=== PATIENT | female | born 1995 ===

== ENCOUNTER 2017-05-17 17:47 | Inpatient (IN) | payer OTHER ==
[2017-05-17 18:23] VITALS: BMI 38.5
[2017-05-17] MEDS ORDERED: Lactated Ringer's 1,000 ML IV SCH (18:30)
[2017-05-17 19:24] LABS: BASO % 0.3 % (0.0-2.0); EOS # 0.2 K/uL (0.0-0.7); EOS % 1.6 % (0.0-4.0); HEMOGLOBIN 12.4 g/dL (12.0-16.0); LYMPH # 1.9 K/uL (1.0-4.3); LYMPH % 13.5 % (20.0-40.0); MEAN CELL VOLUME 87.9 fl (81.0-99.0); MEAN CORPUSCULAR HEMOGLOBIN 29.8 pg (27.0-31.0); MEAN CORPUSCULAR HGB CONC 33.9 g/dL (33.0-37.0); MEAN PLATELET VOLUME 9.4 fl (7.2-11.7); MONO # 0.9 K/uL (0.0-0.8); MONO % 6.2 % (0.0-10.0); NEUT # 10.9 K/uL (1.8-7.0); NEUT % 78.4 % (50.0-75.0); NRBC % 0.1 % (0.0-0.0); RBC 4.15 Mil/uL (3.80-5.20); RED CELL DISTRIBUTION WIDTH 13.7 % (11.5-14.5); WHITE BLOOD COUNT 13.9 K/uL (4.8-10.8)
[2017-05-17] MEDS ORDERED: Bupivacaine HCl 0.25% PF (10 ml) Inj ONE ×2 (19:36→21:22)
[2017-05-17] MEDS ORDERED: Fentanyl/Bupivacaine HCl 250 ML EPI ONE (20:22)
[2017-05-17] MEDS: Lactated Ringer's 1,000 ML IV SCH (20:36)
[2017-05-17] MEDS ORDERED: Oxytocin 30 UNITS in Sodium Chloride 0.9% 500 ML IV ONE (20:38)
[2017-05-17] MEDS ORDERED: Lidocaine 1% Inj (20ml) ONE (20:49)
[2017-05-18 00:24] LABS: BARBITURATES, UR NEGATIVE (NEGATIVE); BENZODIAZEPINES, UR NEGATIVE (NEGATIVE); OPIATES, UR NEGATIVE (NEGATIVE); PHENCYCLIDINE, UR NEGATIVE (NEGATIVE)
[2017-05-18] MEDS ORDERED: Oxycodone/Acetaminophen 5/325 mg Tab PO PRN ×3 (01:00→06:56)
--- NOTE | 2017-05-18 01:00 | OBHP ---
Datetime: 05/17/2017 22:54 IP Adm Impression: Term, intrauterine ; Active labor IP Admit Plan: Admit to unit Admit Comment, IP Provider: Patient presents to labor and delivery complaining of painful uterine co ntractions of moderate intensity patient denies leakage of fluid and vaginal bleeding and reports goo d movement. Past medical history none Past surgical history none Obstetrical history previous spontaneous vaginal delivery Social history denies alcohol tobacco Review of systems patient denies headache chest pain shortness of breath palpitations nausea vomit ing diarrhea dysuria here cold intolerance E bruisibility musculoskeletal neurological complaints Vital signs stable afebrile Physical exam see notes Intrauterine at 39+ weeks Active labor, vertex presentation, estimated weight 7 pounds Anticipate normal spontaneous vaginal delivery External monitor Pelvic Type - PN: Adequate Extremities - PN: Normal Abdomen - PN: Normal Back - PN: Normal Breast - PN: Not Done Lungs - PN: Normal Heart - PN: Normal Thyroid - PN: Normal Neurologic - PN: Normal HEENT - PN: Normal General - PN: Normal FHR - Baseline A Provider: 145 Membranes, Provider: Intact Gestation - Est Wks by US: 39.0 Pool Provider: Negative EGA AdmitDate IP: 40.0 Vital Signs Provider: Reviewed IP Chief Complaint: Uterine contractions NICHD Decel Fetus A IP Provider: None Dilatation, Provider: 4 Effacement, Provider: 100 Station, Provider: 0 Genitourinary Exam: Normal DTRs - PN: Normal
--- NOTE | 2017-05-18 01:02 | OBDS ---
DELIVERY PERSONNEL Delivery Doctor: Sissy Ansari MD Mobile Patrol Officer[facility] Anesthesiologist: Logan Marie MD Resident: Dr. Ford, PGY1 MATERNAL INFORMATION Delivery Anesthesia: Epidural Medications in Delivery: Pitocin 30 units in 500 mls Estimated Blood Loss (ml): 100 Placenta Cultured: No Maternal Complications: None Provider Comments: Delivered live baby boy. 12:44 AM the baby was bulb suctioned on the perineum and transferred to the maternal chest. The cord was clamped and cut and 3 vessels noted a cord blood was obtained and sent to the lab. Placenta was delivered at 12:47 AM intact estimated blood loss was 100 mL. There were no vaginal lacerations. The mother tolerated the procedure well the patient was the w ell-baby nursery with Apgars of 9 and 9 LABOR SUMMARY EDC: 05/17/2017 00:00 No. Babies in Womb: 1 Attempted: No Labor Anesthesia: Epidural LABOR INFORMATION Reason for Induction: Not Applicable Oxytocin: N/A Group B Beta Strep: Negative Antibiotics # of Doses: N/A Antibiotics Time of Last Dose: N/A Steroids Given: None Reason Steroids Not Administered: Not Applicable MEMBRANES Membranes Rupture Method: Artificial Rupture of Membranes: 05/17/2017 19:16 Length of Rupture (hrs): 5.47 Amniotic Fluid Color: Clear Amniotic Fluid Amount: Moderate Amniotic Fluid Odor: Normal STAGES OF LABOR Stage 3 hrs: 0 Stage 3 min: 3 BABY A INFORMATION Delivery Date/Time: 05/18/2017 00:44 Method of Delivery: Vaginal Born in Route : No : N/A Forceps: N/A Vacuum Extraction: N/A Shoulder Dystocia : No SHOULDER DYSTOCIA BABY A Delivery Date/Time: 05/18/2017 00:44 PRESENTATION/POSITION BABY A Presentation: Cephalic Cephalic Presentation: Vertex Breech Presentation: N/A PLACENTA INFORMATION BABY A Placenta Delivery Time : 05/18/2017 00:47 Placenta Method of Delivery: Spontaneous Placenta Status: Delivered SCORES BABY A Heart Rate 1 min: >100 bpm Resp Effort 1 min: Good Cry Reflex Irritability 1 min: Cough or Sneeze or Pulls Away Muscle Tone 1 min: Active Motion Color 1 min: Body [place], Extremities Blue Resuscitation Effort 1 min: N/A SCORE 1 MIN: 9 Heart Rate 5 min: >100 bpm Resp Effort 5 min: Good Cry Reflex Irritability 5 min: Cough or Sneeze or Pulls Away Muscle Tone 5 min: Active Motion Color 5 min: Body [place], Extremities Blue Resuscitation Effort 5 min: N/A SCORE 5 MIN: 9 INFANT INFORMATION BABY A Gestational Age at Delivery: 40.1 Gestational Status: Term Outcome : Liveborn Infant Condition : Stable Sex: Male IDENTIFICATION/MEDS BABY A ID Band Number: [id number] ID Band Location: Left Leg; Left Arm WEIGHT/LENGTH BABY A Infant Birthweight (gms): 3330 Infant Weight (lb): 7 Infant Weight (oz): 5 CORD INFORMATION BABY A No. Cord Vessels: 3 Nuchal Cord Other: N/A True Knot: N/A Infant Cord pH Baby Arterial: N/A Infant Cord pH Baby Venous: N/A Cord Blood Taken: Yes Suction: Mouth; Nose ASSESSMENT BABY A Infant Complications: Multiple Late Decels Physical Findings at Delivery: Within Normal Limits; Molding of the Head Respirations: Appears Normal Associate Professor Of Philosophy/ALS Called : No Transferred To: Remains with Mother
[2017-05-18 07:38] LABS: HEMOGLOBIN 10.6 g/dL (12.0-16.0); MEAN CORPUSCULAR HEMOGLOBIN 29.8 pg (27.0-31.0); MEAN CORPUSCULAR HGB CONC 34.3 g/dL (33.0-37.0); RBC 3.55 Mil/uL (3.80-5.20); RED CELL DISTRIBUTION WIDTH 13.2 % (11.5-14.5); WHITE BLOOD COUNT 17.9 K/uL (4.8-10.8)
[2017-05-18] MEDS ORDERED: Influenza Vaccine 18yr & older 0.5 ML/45 MCG SYR IM ONE (09:00)
--- NOTE | 2017-05-19 07:21 | OBPPN ---
Datetime: 05/19/2017 07:17 PP Pain Prov: Within normal limits PP Abdomen/Uterus Prov: Normal PP Lochia Prov: Normal PP Extremities Prov: Normal PP Progress Prov: Normal PP Impression Prov: Normal progression PP Progress Note Prov: PPD 1 s/p , doing well, breast feeding Continue current management Vital Signs Provider PP: Reviewed; Within Normal Limits
[2017-05-19] MEDS: Oxycodone/Acetaminophen 5/325 mg Tab PO PRN ×2 (15:20→21:48)
--- NOTE | 2017-05-20 09:35 | OBDCSUM ---
Datetime: 05/20/2017 09:34 Discharged to, Provider: Home Follow up at, Provider: OB Disch Instr Activity: Normal activity Disch Instr Diet: Regular Discharge Instructions, Provider: Routine instructions given Discharge Diagnosis, Provider: Term Delivered Discharge Time: 05/20/2017 09:34 Follow up in weeks, Provider: 6 wks Disch Referrals: None Contraception discussed, Prov: Yes
[2017-05-20 21:02] VITALS: BP 130/83; PULSE 87; RESP 20; TEMP 98.5; O2SAT 100
== END 2017-05-20 16:30 | disposition home or self-care (01) | DRG 775 ==
LOC: H.EROB2 17:47 → H.L&D 18:24 → H.OB/GYN 05-18 04:20
PROVIDERS: ADMIT Obstetrics & Gynecology Gynecology; ATTEND Obstetrics & Gynecology Gynecology
PROC: 10E0XZZ Delivery of Products of Conception, External Approach (ICD-10-PCS; principal; 2017-05-17)
PROC: 4A1HXCZ Monitoring of Products of Conception, Cardiac Rate, External Approach (ICD-10-PCS; 2017-05-17)
DX: O76 Abnormality in fetal heart rate and rhythm complicating labor and delivery (principal); J45.909 Unspecified asthma, uncomplicated; Z37.0 Single live birth; O99.52 Diseases of the respiratory system complicating childbirth; Z3A.39 39 weeks gestation of pregnancy